=== PATIENT | male | born 1970 | race Two or more races ===

== ENCOUNTER 2021-04-19 07:08 | Day surgery (SDC) | payer OTHER ==
[2021-04-19] MEDS ORDERED: ceFAZolin 1GM/50ML 100 ML IV ONE (07:47)
[2021-04-19] MEDS ORDERED: HEPARIN SODIUM (PORCINE) 5000 UNITS/ML 1ML VIAL ONE (08:01)
[2021-04-19] MEDS ORDERED: BUPIVACAINE HCL 50 ML ONE (11:31)
[2021-04-19] MEDS ORDERED: LIDOCAINE 1% HCL (LOCAL ANESTH.) INJ 20ML MDV ONE (11:31)
[2021-04-19] MEDS ORDERED: fentaNYL CITRATE 5 ML ONE (11:48)
[2021-04-19] MEDS ORDERED: MIDAZOLAM HCL 2MG/2ML 2ml VIAL (1mg/ml) ONE (11:50)
[2021-04-19] MEDS ORDERED: PROPOFOL 10 MG/ML 20 ML IV ONE (11:51)
[2021-04-19] MEDS ORDERED: LIDOCAINE 2% (LOCAL ANESTH.) PF 5ml SDV ONE (11:51)
[2021-04-19] MEDS ORDERED: ONDANSETRON HCL 4 MG/2 ML VIAL ONE (11:51)
[2021-04-19] MEDS ORDERED: HYDROmorphone HCL 2 MG/ML VL ONE ×2 (12:29→13:41)
[2021-04-19] MEDS ORDERED: SUGAMMADEX 200mg/2ml Vial (100MG/ML) IV ONE (12:52)
[2021-04-19] MEDS: HYDROmorphone HCL 2 MG/ML VL IV PRN ×2 (13:45→14:03)
[2021-04-19] MEDS ORDERED: ONDANSETRON HCL 4 MG/2 ML VIAL IV PRN (13:45)
[2021-04-19 14:20] VITALS: BP 122/74
== END 2021-04-19 14:25 | disposition home or self-care (01) ==
LOC: SUR 07:08
DX: K40.30 Unilateral inguinal hernia, with obstruction, without gangrene, not specified as recurrent (principal); G89.29 Other chronic pain; Z98.890 Other specified postprocedural states; Z79.899 Other long term (current) drug therapy
CPT/HCPCS: 49507; C1781; J0690; J1170; J1644; J2001; J2250; J2405; J2704; J3010; J3490